=== PATIENT | male | born 1975 | race African-American/Black ===

== ENCOUNTER → 2017-06-08 | Outpatient (CLI) | payer OTHER ==
--- NOTE | 2017-06-08 10:45 | XR ---
EXAMINATION TYPE: XR chest 2V DATE OF EXAM: 06/08/2017 COMPARISON: Chest x-ray May 25, 2016. CT chest January 28, 2016. HISTORY: Shortness of breath for 18 months. Hypoxia. TECHNIQUE: Frontal and lateral views of the chest are obtained. FINDINGS: There is suspicious masslike opacity or consolidation involving predominantly left lower l obe with some lingular involvement is also suspected on lateral view. Right lung is clear. No pleura l effusion or pneumothorax is present bilaterally. The cardiac silhouette size is within normal limit s. The osseous structures are intact. IMPRESSION: Suspicious left lower lobe masslike consolidation with likely some lingular involvement, favor multifocal pneumonia. Results communicated to ordering physician via telephone at time of dictation.
== END | disposition home or self-care (01) ==
LOC: RADXRMAIN 10:12
PROVIDERS: ATTEND Family Medicine
DX: R91.8 Other nonspecific abnormal finding of lung field (principal); J96.91 Respiratory failure, unspecified with hypoxia
CPT/HCPCS: 71020

== ENCOUNTER → 2017-06-28 | Outpatient (CLI) | payer OTHER ==
--- NOTE | 2017-06-28 11:23 | XR ---
EXAMINATION TYPE: XR chest 2V DATE OF EXAM: 06/28/2017 COMPARISON: Chest x-ray June 15, 2017. Chest CT June 14, 2017. Older exams back through May HISTORY: Pneumonia progress study. TECHNIQUE: Frontal and lateral views of the chest are obtained. FINDINGS: There is persistent masslike consolidation left infrahilar level. There is persistent more irregular masslike consolidation in the right lower lobe. There is background mild emphysematous donny nge. Upper lungs remain clear. No large pleural effusion or pneumothorax is present. The cardiac silh ouette size is within normal limits. The osseous structures are intact. IMPRESSION: No significant change from June 08 study. Persistent left greater than right massli ke lower lung consolidations. Would correlate with bronchoscopy results performed June 15 to hel p determine need for possible further imaging workup or progress study.
== END | disposition home or self-care (01) ==
LOC: RADXRMAIN 10:42
PROVIDERS: ATTEND Internal Medicine Infectious Disease
DX: J18.9 Pneumonia, unspecified organism (principal)
CPT/HCPCS: 71020

== ENCOUNTER → 2017-08-16 | Outpatient (CLI) | payer OTHER ==
--- NOTE | 2017-08-16 09:40 | CT ---
EXAMINATION TYPE: CT chest wo con DATE OF EXAM: 08/16/2017 COMPARISON: 06/14/2017 HISTORY: Shortness of breath, Cough CT DLP: [address] of the chest was performed with lung and mediastinal window settings submitted. The la ck of contrast limits evaluation of the vascular, mediastinal and parenchymal structures including th e upper abdomen. LUNGS: Persistent masslike areas of airspace consolidation left lower lobe much greater than right lo wer lobe. Interval cavitation is identified of left lower lobe masslike consolidative process without overall significant improvement. Reticulonodular infiltrates upper lobes persist. Trace pleural effu woo evident left lower lobe. Persistent mild bronchiectasis and peribronchial wall thickening. MEDIASTINUM/MI: Thoracic aorta is of normal caliber with limited evaluation given lack of contrast . The heart is not enlarged. No evidence for mediastinal mass. Multiple lymph nodes identified with in the mediastinum, all less than 1 cm in short axis. No obvious hilar adenopathy although the lack o f contrast limits evaluation. UPPER ABDOMEN: No significant abnormality is seen. OTHER: No significant other abnormality. IMPRESSION: 1. Persistent masslike areas of airspace consolidation left lower lobe greater than right lower lobe with interval cavitation and persistent upper lobe reticulonodular infiltrate and trace pleural effu woo. Primary consideration is that of atypical infection although underlying neoplasm is not exclude d. Strict clinical correlation is advised as well as appropriate follow-up.
== END | disposition home or self-care (01) ==
LOC: RADCTMAIN 08:56
PROVIDERS: ATTEND Internal Medicine Pulmonary Disease
DX: R06.02 Shortness of breath (principal); R05 Cough
CPT/HCPCS: 71250

== ENCOUNTER → 2017-09-22 | Outpatient (CLI) | payer OTHER ==
--- NOTE | 2017-09-22 12:21 | XR ---
EXAMINATION TYPE: XR chest 2V DATE OF EXAM: 09/22/2017 COMPARISON: Chest radiograph and CT dated 08/21/2017 HISTORY: Chest pain TECHNIQUE: Frontal and lateral views of the chest are obtained. FINDINGS: There is interval enlargement of the known left lower lobe cavitary lesion containing an a ir-fluid level now measuring at least 7.9 x 6.8 cm. Surrounding left hilar opacity may represent atel ectasis is persistent from the prior. Patchy right infrahilar opacity also likely represents atelecta sis. Cardiac silhouette is within normal limits. Right-sided PICC line terminates in the superior tatyana a cava near the superior vena cava/azygos confluence. Osseous structures are intact. IMPRESSION: Interval enlargement of the left lower lobe known cavitary lesion that again may represe nt cavitary pneumonia, atypical infectious organism, or less likely cavitary neoplasm.
== END | disposition home or self-care (01) ==
LOC: RADXRMAIN 10:58
PROVIDERS: ATTEND Internal Medicine Infectious Disease
DX: R91.1 Solitary pulmonary nodule (principal)
CPT/HCPCS: 71020

== ENCOUNTER 2017-09-29 09:15 | Day surgery (SDC) | payer OTHER ==
[2017-09-29] MEDS ORDERED: LACTATED RINGERS 1,000 ML IV ONE (09:48)
[2017-09-29] MEDS ORDERED: LIDOCAINE 1% 20 ML VIAL (10MG/ML) FOR IV START INTRADERMA ONE (09:49)
[2017-09-29] MEDS ORDERED: MIDAZOLAM 2 MG/2 ML VIAL ONE (10:00)
[2017-09-29] MEDS ORDERED: GLYCOPYRROLATE 0.2 MG/ML 2 ML VIAL ONE (10:00)
[2017-09-29] MEDS ORDERED: PROPOFOL 10 MG/ML 20 ML VIAL IV ONE (10:00)
[2017-09-29] MEDS ORDERED: fentaNYL (PF) 50 MCG/ML 2 ML AMP ONE (10:00)
[2017-09-29] MEDS ORDERED: KETAMINE 10 MG/ML 20 ML VIAL ONE (10:00)
[2017-09-29] MEDS ORDERED: ACETYLCYSTEINE IV 200 MG/ML 30 ML VIAL IV ONE (10:25)
--- NOTE | 2017-09-29 11:07 | XR ---
EXAMINATION TYPE: XR chest 1V DATE OF EXAM: 09/29/2017 COMPARISON: Chest x-ray September 22, 2017. CT chest August 21, 2017 HISTORY: Bronchoscopy with left lower lobe sampling. TECHNIQUE: Single AP portable frontal upright view of the chest is obtained. FINDINGS: There is stable right-sided PICC line. There is persistent cavitary lesion left lung base. There are diffuse bilateral areas of edema and/or infiltrate worsened bilateral lower lungs redemonst rated. No sizable pneumothorax is seen after bronchoscopy and sampling. Osseous structures are intact . Cardiac silhouette size is stable and upper limits of normal IMPRESSION: No evidence of sizable pneumothorax after bronchoscopy and sampling. Diffuse lower lung infiltrates with left lower lobe cavitary lesion redemonstrated
--- NOTE | 2017-09-29 11:08 | FL ---
EXAMINATION TYPE: FL bronchoscopy DATE OF EXAM: 09/29/2017 CLINICAL HISTORY: Abnormal x-ray and CT TECHNIQUE: Fluoroscopy. COMPARISON: None. FINDINGS: Fluoroscopic guidance was provided during bronchoscopy procedure performed by Dr. Galindo. A total of 42 seconds of fluoroscopic time was utilized during the procedure and 1 spot image is acq uired. Single image acquired shows bronchoscopy needle extending into left lung base. IMPRESSION: As Above.
--- NOTE | 2017-09-29 11:29 | P.PCN ---
Date of Procedure: 09/29/17 Preoperative Diagnosis: Left lower lobe cavitary lung mass Postoperative Diagnosis: Left lower lobe cavitary lung mass Procedure(s) Performed: Bronchoscopy with transbronchial biopsies and washing Surgeon: Verito Galindo Estimated Blood Loss (ml): 10 Condition: stable Disposition: PACU Indications for Procedure: Left lower lobe cavitary lung mass Operative Findings: Right lower and middle lobe mucous plugs Edematous and friable mucosa Left lower lobe cavitary lung mass Description of Procedure: This is a 42-year-old gentleman with a known history of HIV who has a left lower lobe cavitary lung mass. The patient has been treated by infectious disease with prolonged course of antibiotics. However his cavitary lesion does not appear to be improving. Bronchoscopy was requested by infectious disease. After review of risks and benefits and discussion of alternative methods of diagnosis, the patient provided informed consent and is willing to proceed with evaluation is recommended. The patient, in endoscopy suite, was placed on continuous electrocardiogram, noninvasive blood pressure monitoring, and SpO2 monitoring. He was administered supplemental oxygen via Ventimask and given IV sedation by the Department of anesthesia. The video bronchoscope was passed through the mouth and carried down to the level of the vocal cords the vocal cords were seen to be moving freely and phonation and respiration. The larynx is normal. The trachea was normal. The marleny is sharp. The right mainstem bronchus was entered first where the right upper lobe, right middle lobe, and right lower lobe were identified. The patient was found to have multiple mucous plugs. Several of them are able to be suctioned clear. However one in the right lower lobe subsegment was unable to be removed. Mucomyst was applied directly to the mucous plug. Biopsy forceps were utilized to try to remove the plug unsuccessfully. The bronchoscope was then directed into the left mainstem bronchus. The left upper lobe and lingula appeared somewhat edematous. The left lower lobe bronchus was quite edematous. Fluoroscopy was utilized to take transbronchial biopsies of the left lower lobe. Some bleeding occurred but hemostasis was achieved spontaneously. The bronchoscope was then retracted and the procedure was terminated. The patient tolerated the procedure well. He was discharged to the recovery suite in stable and satisfactory position.
[2017-09-29 23:23] VITALS: BP 96/54; PULSE 95; RESP 18; TEMP 98.9
== END 2017-09-29 12:05 | disposition home or self-care (01) ==
LOC: ORWHC2ENDO 09:15
PROVIDERS: ATTEND Internal Medicine
DX: C85.19 Unspecified B-cell lymphoma, extranodal and solid organ sites (principal); T17.890A Other foreign object in other parts of respiratory tract causing asphyxiation, initial encounter; J18.9 Pneumonia, unspecified organism; Z21 Asymptomatic human immunodeficiency virus [HIV] infection status; Z79.2 Long term (current) use of antibiotics; Z79.899 Other long term (current) drug therapy
CPT/HCPCS: 88305; 88342; 88341; 71045; 31645; 31628; J2250; J3010; J0132; J2704

== ENCOUNTER → 2018-11-29 | Outpatient (CLI) | payer OTHER ==
[2018-11-29 10:27] LABS: Basophils # (A) 0.1 k/uL (0-0.2); Basophils % (A) 1 %; Eosinophils # (A) 0.4 k/uL (0-0.7); Eosinophils % (A) 11 %; HCT 45.3 % (39.0-53.0); HGB 14.5 gm/dL (13.0-17.5); Lymphocytes # (A) 1.3 k/uL (1.0-4.8); Lymphocytes % (A) 31 %; MCH 30.7 pg (25.0-35.0); MCHC 32.1 g/dL (31.0-37.0); MCV 95.7 fL (80.0-100.0); Mean Platelet Volume 6.7; Monocytes # (A) 0.3 k/uL (0-1.0); Monocytes % (A) 7 %; Neutrophils # (A) 1.9 k/uL (1.3-7.7); Neutrophils % (A) 46 %; Platelet Count 184 k/uL (150-450); RBC 4.74 m/uL (4.30-5.90); WBC 4.2 k/uL (3.8-10.6)
[2018-11-29 17:43] LABS: Albumin 4.4 g/dL (3.80-4.90); Anion Gap 7.2 mmol/L (4.00-12.00); Calcium 9.1 mg/dL (8.7-10.3); Carbon Dioxide 26.8 mmol/L (21.6-31.8); Globulin 2.2 g/dL (1.6-3.3); LDL Cholesterol,Calculated 102.2 mg/dL (0.0-131.0); Potassium 3.9 mmol/L (3.5-5.5); Total Bilirubin 0.4 mg/dL (0.3-1.2); Total Protein 6.6 g/dL (6.2-8.2); VLDL Calculation 18.8 mg/dL (5.00-40.00)
[2018-11-29 19:35] LABS: Hemoglobin A1C 6.2 % (4.0-6.0)
== END ==
LOC: LABWHC1 09:49
PROVIDERS: ATTEND Family Medicine
DX: I10 Essential (primary) hypertension (principal); D50.9 Iron deficiency anemia, unspecified; J98.01 Acute bronchospasm
CPT/HCPCS: 36415; 80053; 80061; 83036; 84443; 85025

== ENCOUNTER → 2020-03-06 | Outpatient (CLI) | payer MEDICARE, OTHER ==
[2020-03-06 16:18] LABS: African American GFR (CKD) 94.1 (60.0-200.0); Anion Gap 3.4 mmol/L (4.00-12.00); Carbon Dioxide 31.6 mmol/L (21.6-31.8); Chol/HDL Ratio 3.69; Non-African American GFR(CKD) 81.2 (60.0-200.0); Potassium 4.3 mmol/L (3.5-5.5)
[2020-03-06 17:21] LABS: Hemoglobin A1C 6.7 % (4.0-6.0)
== END | disposition home or self-care (01) ==
LOC: LABWHC1 08:57
PROVIDERS: ATTEND Family Medicine
DX: I10 Essential (primary) hypertension (principal); E11.9 Type 2 diabetes mellitus without complications; Z79.899 Other long term (current) drug therapy
CPT/HCPCS: 36415; 80051; 80061; 82565; 83036; 84520